=== PATIENT | male | born 1955 | race Caucasian/White ===

== ENCOUNTER 2017-01-31 07:11 | Outpatient (CLI) | payer OTHER ==
[2017-01-31 10:50] LABS: CREATININE 1.7 mg/dL (0.6-1.2)
== END 2017-01-31 07:12 | disposition home or self-care (01) ==
LOC: LAB.F 07:11
PROVIDERS: ATTEND Physical Medicine & Rehabilitation Pain Medicine
DX: Z01.812 Encounter for preprocedural laboratory examination (principal)
CPT/HCPCS: 36415; 82565; 84520

== ENCOUNTER 2018-01-30 07:06 | Outpatient (CLI) | payer OTHER ==
[2018-01-30 12:06] LABS: ALBUMIN 3.8 g/dL (3.2-5.5); ALBUMIN/GLOBULIN RATIO 1.2 (1.0-2.2); ALKALINE PHOSPHATASE 67 IU/L (42-121); ALT ALANINE AMINOTRANSFERASE 30 IU/L (10-60); AST ASPARTATE AMINOTRANSFERASE 26 IU/L (10-42); BILIRUBIN,TOTAL 0.6 mg/dL (0.2-1.0); BUN - BLOOD UREA NITROGEN 39 mg/dL (6-20); CALCIUM 9.3 mg/dL (8.5-10.3); CARBON DIOXIDE - CO2 23 mmol/L (21-32); CHLORIDE 111 mmol/L (101-111); CHOL/HDL RATIO 4.2 (<5.0); CHOLESTEROL 150 mg/dL; CREATININE 1.7 mg/dL (0.6-1.2); GFR - MDRD 41 (>89); GLUCOSE 106 mg/dL (70-100); HDL CHOLESTEROL 36 mg/dL; LDL CHOLESTEROL,CALCULATED 87 mg/dL; LDL/HDL RATIO 2.4 (<3.6); SODIUM 142 mmol/L (135-145); TOTAL PROTEIN 7.1 g/dL (6.7-8.2); VLDL CHOLESTEROL 27 mg/dL
[2018-01-30 12:07] LABS: PSA FREE 0.4 ng/mL (0.16-2.81)
[2018-01-30 12:08] LABS: HB2 TOTAL 13.1 g/dL; HEMOGLOBIN A1C 0.58 g/dL; HEMOGLOBIN A1C % 6.2 % (4.6-6.2); PSA TOTAL 3.04 ng/mL (0.000-2.000)
== END 2018-01-30 07:07 | disposition home or self-care (01) ==
LOC: LAB.F 07:06
PROVIDERS: ATTEND Family Medicine
DX: D63.1 Anemia in chronic kidney disease (principal); R73.9 Hyperglycemia, unspecified; I10 Essential (primary) hypertension; N18.9 Chronic kidney disease, unspecified; E78.9 Disorder of lipoprotein metabolism, unspecified; R97.20 Elevated prostate specific antigen [PSA]
CPT/HCPCS: 36415; 80053; 80061; 83036; 83721; 84154; 84443

== ENCOUNTER 2022-08-12 18:32 | Outpatient (CLI) | payer MEDICARE ==
--- NOTE | 2022-08-13 09:18 | Ultrasound Report ---
PROCEDURE: Retroperitoneal INDICATIONS: NEUROGENIC BLADDER TECHNIQUE: Real-time scanning was performed of the retroperitoneal organs, with image documentation. COMPARISON: Report from a previous ultrasound dated 10/26/2009. FINDINGS: Kidneys: Chronically small and shrunken left kidney and hypertrophied right kidney. Both kidneys are echogenic. Right kidney measures 15.7 cm long; left kidney measures 7.6 cm long. Right renal cortica l thickness is 1.7 cm; left renal cortical thickness is 0.8 cm. No solid masses, hydronephrosis, or nephrolithiasis. Pancreas: Visualized portions of the pancreas are sonographically normal. Aorta: Visualized aorta is normal in caliber at 3 cm or less. Iliac arteries: Proximal common iliac arteries are normal in caliber at 2.5 cm or less. IVC: Intrahepatic inferior vena cava is patent. Bladder: Pre-void bladder volume is 154.6 mL. Post-void residual is 8.3 mL. Pre-void images demons trate no intraluminal masses or stones. There is bladder wall thickening noted. On pre-void images, a right ureteral jet is noted with color Doppler interrogation. (Of note, ureteral jets may not be de tectable in up to 25% of cases due to insufficient differences in specific gravity between ureteral a nd bladder urine). Prostate measures 3.9 x 2.8 x 5.2 cm Miscellaneous: No free abdominal fluid. IMPRESSION: 1. Chronically small and shrunken left kidney 2. Chronically hypertrophied right kidney. There is no hydronephrosis. The right kidney is noted to b e echogenic. 3. Bladder wall is thickened. There is no significant post void residual noted. Reviewed by: Davian Murillo MD on 08/13/2022 9:16 AM PST Approved by: Davian Murillo MD on 08/13/2022 9:16 AM PST Station ID: [id number]
== END 2022-08-12 18:33 | disposition home or self-care (01) ==
LOC: DI 18:32
PROVIDERS: ATTEND Physician Assistant
DX: N31.9 Neuromuscular dysfunction of bladder, unspecified (principal); N28.81 Hypertrophy of kidney